=== PATIENT | female | born 1990 | race African-American/Black ===

== ENCOUNTER 2017-12-01 18:45 | Emergency (ER) | payer BC, MEDICAID ==
[~2017-12-01] VITALS: Ht 165.1 cm; Wt 56.7 kg
[2017-12-01 23:11] VITALS: BP 143/100
[2017-12-02] MEDS ORDERED: HYDROcodone-ACET 10/325MG TAB PO ONE (00:15)
[2017-12-02] MEDS ORDERED: ONDANSETRON ODT 4 MG TAB PO ONE (00:15)
== END 2017-12-02 01:14 | disposition home or self-care (01) ==
LOC: ER 18:45
DX: S62.352A Nondisplaced fracture of shaft of third metacarpal bone, right hand, initial encounter for closed fracture (principal); S62.354A Nondisplaced fracture of shaft of fourth metacarpal bone, right hand, initial encounter for closed fracture; S01.81XA Laceration without foreign body of other part of head, initial encounter; V43.92XA Unspecified car occupant injured in collision with other type car in traffic accident, initial encounter; Y93.89 Activity, other specified; Y99.8 Other external cause status; Y92.89 Other specified places as the place of occurrence of the external cause
CPT/HCPCS: 12014; 70450; 73130; 99284; Q0162; 12002; 29125

== ENCOUNTER 2017-12-18 07:04 | Day surgery (SDC) | payer BC ==
[2017-12-17 12:42] LABS: Basophils # (auto) 0.1 uL; Basophils % (auto) 1.1 % (0.0-2.0); Eosinophils # (auto) 0.1 uL; Hemoglobin 11.9 g/dL (12.2-16.2); Lymphocytes # (auto) 1.5 uL; Lymphocytes % (auto) 31.9 % (10.0-50.0); Mean Corpuscular Hemoglobin 29.8 pg (28.0-32.0); Mean Corpuscular Volume 90.3 fL (80.0-100.0); Monocytes # (auto) 0.3 uL; Neutrophils # (auto) 2.7 uL; Nucleated Red Blood Cells % 0.1 %; Platelet Count (auto) 290 10^3/uL (140-450); Red Blood Cells 3.98 10^6/uL (4.0-5.20); Red Cell Distribution Width 13.1 % (11.8-14.3); White Blood Cell 4.7 10^3/uL (4.4-10.8)
[2017-12-17 12:47] LABS: Urine Bacteria FEW /hpf (None Seen); Urine Blood 2+ /uL (Negative); Urine Specific Gravity 1.004 (1.001-1.035); Urine WBC 3 /hpf (0 - 5); Urine WBC Clumps PRESENT /hpf (None Seen)
[2017-12-17 12:55] LABS: INR 0.95 (0.9-1.15); Partial Thromboplastin Time 26.6 sec (22.64-33.71); Prothrombin Time 10.4 sec (9.37-12.3)
[2017-12-17 12:57] LABS: Albumin 4.4 g/dL (3.4-5.0); BUN/Creatinine Ratio 6.1; Calcium 8.8 mg/dL (8.5-10.1); Potassium 3.4 mmol/L (3.5-5.1)
[2017-12-17 12:59] LABS: Bilirubin, Total 0.4 mg/dL (0.2-1.0); Total Protein 7.9 g/dL (6.4-8.2)
[~2017-12-18] VITALS: Ht 165.1 cm; Wt 57.6 kg
[2017-12-18] MEDS ORDERED: ceFAZolin 1GM/50ML 50 ML IV ONE (08:15)
[2017-12-18] MEDS ORDERED: MIDAZOLAM HCL 1MG/1ML-2 ML VIAL ONE (08:30)
[2017-12-18] MEDS ORDERED: LIDOCAINE HCL 2% TOP JELLY 5ML TOP ONE (08:30)
[2017-12-18] MEDS ORDERED: LIDOCAINE HCL 2 %PF INJ 10ML AMP IJ ONE (08:30)
[2017-12-18] MEDS ORDERED: fentaNYL CITRATE 100 MCG/2 ML VL ONE (08:30)
[2017-12-18] MEDS ORDERED: PROPOFOL 10 MG/ML 20 ML IV ONE (08:31)
[2017-12-18] MEDS ORDERED: BUPIVACAINE W/ EPINEPH 0.25% INJ 50ML MDV ONE (08:32)
[2017-12-18] MEDS ORDERED: ePHEDrine SULFATE 50 MG/ML AMP IV ONE (08:59)
[2017-12-18] MEDS ORDERED: METOCLOPRAMIDE HCL 5MG/ml INJ 2ml VIAL ONE (09:00)
[2017-12-18] MEDS ORDERED: ONDANSETRON HCL 4 MG/2 ML VIAL IV ONE (09:30)
[2017-12-18] MEDS ORDERED: MORPHINE SULFATE 4 MG/ML SYR/VIAL IV PRN (09:30)
[2017-12-18] MEDS ORDERED: NALOXONE HCL 0.4 MG/ML VIAL IV PRN (09:30)
[2017-12-18] MEDS ORDERED: KETOROLAC TROMETH 30 MG/ML 1ML VIAL ONE (09:37)
[2017-12-18 12:23] VITALS: BP 111/69
== END 2017-12-18 12:33 | disposition home or self-care (01) ==
LOC: SUR 07:04
PROVIDERS: ATTEND Orthopaedic Surgery
DX: S62.322A Displaced fracture of shaft of third metacarpal bone, right hand, initial encounter for closed fracture (principal); S62.324A Displaced fracture of shaft of fourth metacarpal bone, right hand, initial encounter for closed fracture; X58.XXXA Exposure to other specified factors, initial encounter; Y93.9 Activity, unspecified; Y92.9 Unspecified place or not applicable; Y99.9 Unspecified external cause status
CPT/HCPCS: 26615; 36415; 73140; 76001; 80053; 81001; 84702; 85025; 85610; 85730; C1713; J0690; J1885; J2250; J2270; J2405; J2704; J2765; J3010